=== PATIENT | male | born 1980 | race African-American/Black ===

== ENCOUNTER 2020-06-10 08:41 | Emergency (ER) | payer MEDICAID ==
[~2020-06-10] VITALS: Ht 167.6 cm; Wt 411.0 kg
[2020-06-10] MEDS ORDERED: AMLODIPINE 10MG TABLET PO ONE (11:15)
[2020-06-10 12:23] LABS: HEMATOCRIT. 41.1 % (42.0-52.0); HEMOGLOBIN. 13.3 g/dL (14.0-18.0); LYMPHOCYTES % 34.9 % (20.0-50.0); MEAN CORPUSCULAR VOLUME 89.6 fL (80.0-94.0); MEAN PLATELET VOLUME 8.3 fl (7.4-10.4); MONOCYTES % 11.4 % (2.0-8.0); NEUTROPHILS % 49.7 % (40.0-76.0); PLATELET 199 x1000/uL (130-400); RED BLOOD CELL COUNT 4.59 mill/uL (4.7-6.1); RED CELL DISTRIBUTION WIDTH 15.1 % (11.6-14.6)
[2020-06-10 12:34] LABS: CHLORIDE 108 mEq/L (98-107)
[2020-06-10] MEDS ORDERED: AMLO5TAB88 MT (12:49)
[2020-06-10] MEDS ORDERED: NAPR500T7 MT (12:49)
[2020-06-10 13:12] VITALS: BP 190/100
== END 2020-06-10 13:13 | disposition home or self-care (01) ==
LOC: ER 08:41
DX: S86.819A Strain of other muscle(s) and tendon(s) at lower leg level, unspecified leg, initial encounter (principal); I10 Essential (primary) hypertension; X58.XXXA Exposure to other specified factors, initial encounter; Y93.89 Activity, other specified; Z87.828 Personal history of other (healed) physical injury and trauma; Z98.890 Other specified postprocedural states; Y92.89 Other specified places as the place of occurrence of the external cause
CPT/HCPCS: 36415; 73590; 73610; 80053; 83880; 84484; 85025; 93005; 93971; 99285

== ENCOUNTER 2021-01-18 23:25 | Emergency (ER) | payer MEDICAID ==
[~2021-01-18] VITALS: Ht 170.2 cm; Wt 163.0 kg
[~2021-01-18 23:25] MED LIST: AMLO5TAB88 MT; NAPR500T7 MT
[2021-01-18 23:37] VITALS: BP 214/131
[2021-01-18] MEDS ORDERED: AMLODIPINE 5MG TABLET PO ONE (23:45)
[2021-01-19] MEDS ORDERED: AMLO5TAB88 MT (00:29)
== END 2021-01-19 00:42 | disposition home or self-care (01) ==
LOC: ER 23:25
DX: T16.2XXA Foreign body in left ear, initial encounter (principal); X58.XXXA Exposure to other specified factors, initial encounter; Y93.89 Activity, other specified; Y92.89 Other specified places as the place of occurrence of the external cause; Y99.8 Other external cause status
CPT/HCPCS: 69200; 99283; 99284

== ENCOUNTER 2022-01-11 09:18 | Emergency (ER) | payer MEDICAID ==
[~2022-01-11] VITALS: Ht 160 cm; Wt 80.0 kg
[2022-01-11 09:37] VITALS: BP 235/146
[2022-01-11] MEDS ORDERED: AMLODIPINE 10MG TABLET PO ONE (10:15)
[2022-01-11 10:58] LABS: BASOPHILS % 1.1 % (0.0-2.0); EOSINOPHILS % 4.2 % (0.0-5.0); HEMOGLOBIN. 16.2 g/dL (14.0-18.0); LYMPHOCYTES % 35.9 % (20.0-50.0); MEAN CORPUSCULAR HEMOGLOBIN 29.1 pg (28.0-32.0); MEAN CORPUSCULAR VOLUME 89.4 fL (80.0-94.0); MEAN PLATELET VOLUME 8.7 fl (7.4-10.4); MONOCYTES % 10.1 % (2.0-8.0); NEUTROPHILS % 48.7 % (40.0-76.0); PLATELET 242 x1000/uL (130-400); RED BLOOD CELL COUNT 5.59 mill/uL (4.7-6.1); RED CELL DISTRIBUTION WIDTH 15.1 % (11.6-14.6)
[2022-01-11 11:01] LABS: CHLORIDE 104 mEq/L (98-107)
== END 2022-01-11 13:29 | disposition left against medical advice (07) ==
LOC: ER 09:18
DX: I10 Essential (primary) hypertension (principal); Z76.0 Encounter for issue of repeat prescription
CPT/HCPCS: 36415; 80053; 85025; 99283